=== PATIENT | female | born 1935 | race Caucasian/White ===

== ENCOUNTER 2017-12-07 05:19 | Inpatient (IN) | payer MEDICARE, BC ==
[2017-12-01 14:36] LABS: BASOPHILS # (AUTO) 0.1 X10'3 (0-0.2); BASOPHILS % (AUTO) 1.1 % (0-1); EOSINOPHILS # (AUTO) 0.4 X10'3 (0-0.9); EOSINOPHILS % (AUTO) 4.7 % (0-6); LYMPHOCYTES # (AUTO) 1.1 X10'3 (1.1-4.8); LYMPHOCYTES % (AUTO) 11.9 % (21-51); MEAN CORPUSCULAR HEMOGLOBIN 30.7 PG (27.0-31.0); MEAN CORPUSCULAR HGB CONC 34.8 % (33.0-36.5); MEAN CORPUSCULAR VOLUME 88.3 FL (78-98); MEAN PLATELET VOLUME 8.5 FL (7.4-10.4); MONOCYTES # (AUTO) 0.9 X10'3 (0-0.9); MONOCYTES % (AUTO) 10.3 % (2-12); NEUTROPHILS # (AUTO) 6.5 X10'3 (1.8-7.7); PRE OP HEMATOCRIT 38.7 % (35.0-45.0); PRE OP HEMOGLOBIN 13.5 g/dL (12.0-16.0); PRE OP PLATELET COUNT 286 X10'3 (140-440); RED BLOOD COUNT 4.38 X10'6 (4.20-5.60); RED CELL DISTRIBUTION WIDTH 13.9 % (11.5-14.5)
[2017-12-01 14:37] LABS: CLARITY,URINE CLOUDY (Clear); COLOR,URINE YELLOW (Yellow); GLUCOSE, URINE NEGATIVE (Neg); KETONES,URINE NEGATIVE (Neg); LEUKOCYTE ESTERASE ,URINE MODERATE (Neg); NITRITES, URINE NEGATIVE (Neg); OCCULT BLOOD,URINE TRACE-INTACT (Neg); PROTEIN,URINE NEGATIVE (Neg)
[2017-12-01 14:47] LABS: UA COLLECTION TYPE CLN CATCH MIDSTREAM
[2017-12-01 14:47] LABS: PRE OP INR 1.2 INR; PRE OP PROTIME 12.4 SECONDS (9.0-12.0)
[2017-12-01 14:48] LABS: MUCUS STRANDS FEW /LPF (Neg); SQUAMOUS EPITHELIAL CELL,UR MODERATE /LPF (FEW)
[2017-12-01 14:50] LABS: BACTERIA,URINE 1+ /HPF (Neg); WBC,URINE 50-100 /HPF (0-4)
[2017-12-01 14:51] LABS: ALBUMIN 3.5 G/DL (3.4-5.0); ALBUMIN/GLOBULIN RATIO 0.9 (1.1-1.5); ALKALINE PHOSPHATASE 110 IU/L (46-116); BLOOD UREA NITROGEN 19 MG/DL (7-18); BUN/CREATININE RATIO 18.1 (6.6-38.0); CALCIUM 8.5 MG/DL (8.5-10.1); CHLORIDE 104 MMOL/L (99-107); CREATININE 1.05 MG/DL (0.40-0.90); PRE OP ALT 21 U/L (30-65); PRE OP ANION GAP 10 (8-16); PRE OP AST 15 U/L (10-37); PRE OP BILIRUB, TOTAL 0.4 MG/DL (0.0-1.0); PRE OP GLUCOSE 105 MG/DL (70-104); PRE OP SODIUM 139 MMOL/L (135-145); TOTAL PROTEIN 7.4 G/DL (6.4-8.2); eGFR 50 ML/MIN
[2017-12-01 14:51] LABS: HYALINE CASTS 0-3 /LPF (NEGATIVE)
[2017-12-07] VITALS (22 sets, daily range): BP systolic 108–149; BP diastolic 51–79
[~2017-12-07] VITALS: Ht 162.6 cm; Wt 94.6 kg
[~2017-12-07 05:19] MED LIST: DABI150C PO; DILT120C51 PO; DULO-31 PO; SIMV40TA4 PO; TRIA1TAB94 PO; ringers solution, lacted 1,000 ML IV SCH
[2017-12-07] MEDS ORDERED: celeCOXIB 100mg capsule PO ONE (05:30)
[2017-12-07] MEDS ORDERED: famotidine 20mg tablet PO ONE (05:30)
[2017-12-07] MEDS ORDERED: gabapentin 300mg capsule PO ONE (05:30)
[2017-12-07] MEDS ORDERED: vancomycin inj 1,500 MG in normal saline 300ml IV soln IV ONE (05:30)
[2017-12-07] MEDS ORDERED: metoclopramide 5 mg/ml inj IV ONE (05:30)
[2017-12-07] MEDS ORDERED: cefazolin/dext.iso 2gm/50ml 50 ML IV ONE (05:30)
[2017-12-07] MEDS ORDERED: acetaminophen 325mg tablet PO ONE (05:30)
[2017-12-07] MEDS ORDERED: LIDOcaine 1% (10mg/ml) 2ml vial ONE (05:55)
[2017-12-07] MEDS ORDERED: metoclopramide 10mg tablet PO ONE (06:15)
[2017-12-07] MEDS ORDERED: cloNIDine hcl/PF 100mcg/ml inj ONE (06:54)
[2017-12-07] MEDS ORDERED: vancomycin 1,000mg inj ONE (06:54)
[2017-12-07] MEDS ORDERED: epiNEPHrine 1 mg/ml inj ONE (06:54)
[2017-12-07] MEDS ORDERED: ROPIVAcaine 0.5% (5mg/ml) 30ml vial ONE (06:54)
[2017-12-07] MEDS ORDERED: ketorolac trometh. 30mg/ml inj. ONE (06:54)
[2017-12-07] MEDS ORDERED: tetracaine 1% (10mg/ml) pres. free inj. ONE (07:04)
[2017-12-07] MEDS ORDERED: acetaminophen 325mg tablet PO PRN (07:05)
[2017-12-07] MEDS ORDERED: ondansetron/PF 4mg/2ml inj IV PRN ×3 (07:05→07:20)
[2017-12-07] MEDS ORDERED: magnesium hydroxide 30ml (MOM) UD suspension PO PRN (07:05)
[2017-12-07] MEDS ORDERED: oxyCODONE/APAP 10/325mg tablet PO PRN (07:05)
[2017-12-07] MEDS ORDERED: diphenhydrAMINE 25mg capsule PO PRN ×2 (07:05)
[2017-12-07] MEDS ORDERED: bisacodyl 10mg suppository rectal RC PRN (07:05)
[2017-12-07] MEDS ORDERED: HYDROmorphone inj. 0.5 MG/0.5 ML DISP.SYRIN IV PRN ×2 (07:05)
[2017-12-07] MEDS ORDERED: MIDAZolam 1mg/ml 10ml vial ONE (07:07)
[2017-12-07] MEDS ORDERED: fentaNYL/PF 50MCG/1 ML 2ML syringe ONE (07:07)
[2017-12-07] MEDS ORDERED: MORPHINE SULFATE/PF 0.5 MG/ML 10ML AMPUL ONE (07:07)
[2017-12-07] MEDS ORDERED: propofol inj 20 ML IV ONE ×2 (07:09)
[2017-12-07] MEDS ORDERED: tranexamic acid inj. 1,000 MG in normal saline 100ml IV soln 90 ML IV ONE (07:10)
[2017-12-07] MEDS ORDERED: LIDOcaine 1%/PF (10mg/ml) 5ml vial ONE (07:10)
[2017-12-07] MEDS ORDERED: ringers solution, lacted 1,000 ML IV SCH (07:16)
[2017-12-07] MEDS ORDERED: diphenhydrAMINE 50 mg/ml inj IV PRN (07:20)
[2017-12-07] MEDS ORDERED: morphine 2 MG/ML inj. syringe IV PRN ×2 (07:20)
[2017-12-07] MEDS ORDERED: meperidine/PF 50mg/ml syringe IV PRN ×2 (07:20)
[2017-12-07] MEDS ORDERED: hydrALAZINE 20mg/ml inj. IV PRN (07:20)
[2017-12-07] MEDS ORDERED: labetalol 5mg/ml 20ml inj. IV PRN (07:20)
[2017-12-07] MEDS ORDERED: ePHEDrine 50MG/ML INJ. ONE ×2 (07:42→07:48)
[2017-12-07] MEDS ORDERED: phenylephrine 10mg/ml inj IV ONE (07:46)
[2017-12-07] MEDS ORDERED: vancomycin/NS 1 GM ADD-VANTAGE 250 ML IV SCH (08:00)
[2017-12-07] MEDS ORDERED: tranexamic acid 100mg/ml inj. ONE (08:37)
[2017-12-07] MEDS: potassium cl 20mEq in 1/2 NS 1,000 ML IV SCH ×3 (11:01→18:50)
[2017-12-07] MEDS: cefazolin 1gm/NS 100mL 100 ML IV SCH ×2 (11:02→15:51)
[2017-12-07] MEDS: duloxetine 30mg CAPSULE.DR PO SCH (11:03)
[2017-12-07] MEDS: diltiazem CD 120mg capsule (once-daily) PO SCH (11:03)
[2017-12-07] MEDS: atorvastatin 20mg tablet PO SCH (11:03)
[2017-12-07] MEDS: multivitamins, therapeutics tablet PO SCH (11:04)
[2017-12-07] MEDS: ascorbic acid 500mg tablet PO SCH ×2 (11:04→21:02)
[2017-12-07] MEDS: gabapentin 300mg capsule PO SCH ×3 (11:04→21:00)
[2017-12-07] MEDS: triamterene/HCTZ 37.5/25mg tablet PO SCH (11:04)
[2017-12-07] MEDS: dabigatran 150mg capsule PO SCH (11:04)
[2017-12-07] MEDS: sennosides 8.6mg tablet PO SCH (21:03)
[2017-12-08 02:00] VITALS: BP 114/52
[2017-12-08] MEDS: potassium cl 20mEq in 1/2 NS 1,000 ML IV SCH ×3 (03:53→22:14)
[2017-12-08] MEDS: oxyCODONE/APAP 10/325mg tablet PO PRN ×3 (04:59→20:51)
[2017-12-08 06:21] LABS: HEMATOCRIT 29.6 % (35.0-45.0); HEMOGLOBIN 10.2 g/dl (12.0-16.0); MEAN CORPUSCULAR HEMOGLOBIN 30.3 PG (27.0-31.0); MEAN CORPUSCULAR HGB CONC 34.5 % (33.0-36.5); MEAN CORPUSCULAR VOLUME 87.7 FL (78-98); PLATELET COUNT 202 X10'3 (140-440); RED BLOOD COUNT 3.37 X10'6 (4.20-5.60); RED CELL DISTRIBUTION WIDTH 14.1 % (11.5-14.5); WHITE BLOOD COUNT 6.2 X10'3 (4.5-11.0)
[2017-12-08 06:22] LABS: BASOPHILS % (AUTO) 0.6 % (0-1); EOSINOPHILS # (AUTO) 0.5 X10'3 (0-0.9); EOSINOPHILS % (AUTO) 7.4 % (0-6); LYMPHOCYTES # (AUTO) 0.8 X10'3 (1.1-4.8); LYMPHOCYTES % (AUTO) 12.6 % (21-51); MEAN PLATELET VOLUME 8.5 FL (7.4-10.4); MONOCYTES # (AUTO) 0.7 X10'3 (0-0.9); MONOCYTES % (AUTO) 12.1 % (2-12); NEUTROPHILS # (AUTO) 4.2 X10'3 (1.8-7.7); NEUTROPHILS % (AUTO) 67.3 % (42-75)
[2017-12-08 06:36] LABS: ANION GAP 9 (8-16); CHLORIDE 105 MMOL/L (99-107); POTASSIUM 4.2 MMOL/L (3.5-5.1); SODIUM 138 MMOL/L (135-145); TOTAL CARBON DIOXIDE 24.1 MMOL/L (24-32)
[2017-12-08 07:09] VITALS: BP 132/63
[2017-12-08] MEDS: duloxetine 30mg CAPSULE.DR PO SCH (08:51)
[2017-12-08] MEDS: triamterene/HCTZ 37.5/25mg tablet PO SCH (08:51)
[2017-12-08] MEDS: ascorbic acid 500mg tablet PO SCH ×2 (08:51→20:51)
[2017-12-08] MEDS: atorvastatin 20mg tablet PO SCH (08:51)
[2017-12-08] MEDS: multivitamins, therapeutics tablet PO SCH (08:51)
[2017-12-08] MEDS: diltiazem CD 120mg capsule (once-daily) PO SCH (08:51)
[2017-12-08] MEDS: gabapentin 300mg capsule PO SCH ×3 (08:52→20:51)
[2017-12-08] MEDS: dabigatran 150mg capsule PO SCH (08:52)
[2017-12-08 10:00] VITALS: BP 162/53
[2017-12-08 18:00] VITALS: BP 111/51
[2017-12-08] MEDS: Protein Shake (high protein) 240ml (8oz) cup PO SCH (18:00)
[2017-12-08] MEDS: sennosides 8.6mg tablet PO SCH (20:51)
[2017-12-08 22:00] VITALS: BP 121/57
[2017-12-09] MEDS: oxyCODONE/APAP 10/325mg tablet PO PRN ×2 (00:32→05:11)
[2017-12-09 07:00] VITALS: BP 101/59
[2017-12-09 07:31] VITALS: BP 145/61
[2017-12-09 07:33] LABS: BASOPHILS % (AUTO) 0.3 % (0-1); EOSINOPHILS # (AUTO) 0.6 X10'3 (0-0.9); EOSINOPHILS % (AUTO) 6.4 % (0-6); HEMOGLOBIN 10.4 g/dl (12.0-16.0); LYMPHOCYTES # (AUTO) 0.5 X10'3 (1.1-4.8); LYMPHOCYTES % (AUTO) 5.4 % (21-51); MEAN CORPUSCULAR HEMOGLOBIN 30.7 PG (27.0-31.0); MEAN CORPUSCULAR HGB CONC 34.5 % (33.0-36.5); MEAN CORPUSCULAR VOLUME 88.9 FL (78-98); MEAN PLATELET VOLUME 8.8 FL (7.4-10.4); MONOCYTES # (AUTO) 0.8 X10'3 (0-0.9); MONOCYTES % (AUTO) 8.9 % (2-12); NEUTROPHILS # (AUTO) 7.4 X10'3 (1.8-7.7); PLATELET COUNT 196 X10'3 (140-440); RED BLOOD COUNT 3.37 X10'6 (4.20-5.60); RED CELL DISTRIBUTION WIDTH 14.1 % (11.5-14.5); WHITE BLOOD COUNT 9.4 X10'3 (4.5-11.0)
[2017-12-09] MEDS: diltiazem CD 120mg capsule (once-daily) PO SCH (07:56)
[2017-12-09] MEDS: multivitamins, therapeutics tablet PO SCH (07:57)
[2017-12-09] MEDS: duloxetine 30mg CAPSULE.DR PO SCH (07:57)
[2017-12-09] MEDS: gabapentin 300mg capsule PO SCH (07:57)
[2017-12-09] MEDS: ascorbic acid 500mg tablet PO SCH (07:58)
[2017-12-09] MEDS: triamterene/HCTZ 37.5/25mg tablet PO SCH (07:58)
[2017-12-09] MEDS: dabigatran 150mg capsule PO SCH (07:58)
[2017-12-09] MEDS: atorvastatin 20mg tablet PO SCH (07:58)
[2017-12-09] MEDS: Protein Shake (high protein) 240ml (8oz) cup PO SCH (08:00)
[2017-12-09 11:45] VITALS: BP 114/63
== END 2017-12-09 14:15 | disposition home health service (06) | DRG 470 ==
LOC: PAS IN 05:19 → EDSTATUS 07:30 → ORTHO 4S 10:50
PROVIDERS: ADMIT Orthopaedic Surgery; ATTEND Orthopaedic Surgery
PROC: 0SR906Z Replacement of Right Hip Joint with Oxidized Zirconium on Polyethylene Synthetic Substitute, Open Approach (ICD-10-PCS; principal; 2017-12-07 07:15)
DX: M16.11 Unilateral primary osteoarthritis, right hip (principal); I48.2 Chronic atrial fibrillation; E66.9 Obesity, unspecified; D62 Acute posthemorrhagic anemia; I12.9 Hypertensive chronic kidney disease with stage 1 through stage 4 chronic kidney disease, or unspecified chronic kidney disease; N18.9 Chronic kidney disease, unspecified; E78.5 Hyperlipidemia, unspecified; G89.29 Other chronic pain; M17.11 Unilateral primary osteoarthritis, right knee; I25.10 Atherosclerotic heart disease of native coronary artery without angina pectoris; M54.9 Dorsalgia, unspecified; Z68.35 Body mass index [BMI] 35.0-35.9, adult; Z72.89 Other problems related to lifestyle; Z90.710 Acquired absence of both cervix and uterus; Z79.899 Other long term (current) drug therapy; Z79.82 Long term (current) use of aspirin; Z85.3 Personal history of malignant neoplasm of breast; Z86.73 Personal history of transient ischemic attack (TIA), and cerebral infarction without residual deficits; Z87.891 Personal history of nicotine dependence
CPT/HCPCS: 36415; 71046; 72170; 80051; 80053; 81001; 85025; 85610; 85730; 86885; 86900; 86901; 87070; 87077; 87088; 87186; 93005; 97110; 97116; 97530; 97535; A4615; A6449; A7000; C1758; C1776; J0171; J0690; J0735; J1885; J2001; J2250; J2274; J2370; J2704; J2795; J3010; J3370; J3490; J7030; J7120; J8597